=== PATIENT | female | born 1980 | race Caucasian/White ===

== ENCOUNTER 2017-05-11 12:21 | Emergency (ER) | payer MEDICAID ==
[~2017-05-11] VITALS: Ht 162.6 cm; Wt 140.0 kg
[2017-05-11 12:59] VITALS: BP 114/85
== END 2017-05-11 13:01 ==
LOC: ER 12:22
DX: S60.812A Abrasion of left wrist, initial encounter (principal); S60.811A Abrasion of right wrist, initial encounter; R46.89 Other symptoms and signs involving appearance and behavior; Y04.8XXA Assault by other bodily force, initial encounter; Y93.89 Activity, other specified; Y92.89 Other specified places as the place of occurrence of the external cause; Y99.8 Other external cause status
CPT/HCPCS: 99283

== ENCOUNTER 2017-10-10 22:05 | Emergency (ER) | payer MEDICAID ==
[~2017-10-10] VITALS: Ht 160 cm; Wt 60.0 kg
[2017-10-10 22:32] LABS: BASOPHILS # (AUTO) 0.1 X10'3 (0-0.2); BASOPHILS % (AUTO) 0.8 % (0-1); EOSINOPHILS # (AUTO) 0.3 X10'3 (0-0.9); EOSINOPHILS % (AUTO) 3.5 % (0-6); HEMATOCRIT 32.4 % (35.0-45.0); LYMPHOCYTES # (AUTO) 3.6 X10'3 (1.1-4.8); MEAN CORPUSCULAR HGB CONC 33.9 % (33.0-36.5); MEAN CORPUSCULAR VOLUME 88.4 FL (78-98); MONOCYTES # (AUTO) 0.7 X10'3 (0-0.9); MONOCYTES % (AUTO) 8.5 % (2-12); NEUTROPHILS # (AUTO) 3.4 X10'3 (1.8-7.7); NEUTROPHILS % (AUTO) 42.2 % (42-75); PLATELET COUNT 240 X10'3 (140-440); RED BLOOD COUNT 3.67 X10'6 (4.20-5.60); RED CELL DISTRIBUTION WIDTH 14.1 % (11.5-14.5)
[2017-10-10] MEDS ORDERED: TETanus/Pertussis (Acell)/Diphther VAC/PF (Tdap-Adult) 0.5ml syringe IMVAC ONE (22:40)
[2017-10-10] MEDS ORDERED: LIDOcaine 1% 30ml preserv. free vial IJ ONE (22:40)
[2017-10-10] MEDS ORDERED: bacitracin 15gm ointment TP ONE (22:40)
[2017-10-10 22:45] LABS: ALANINE AMINOTRANSFERASE 127 U/L (12-78); ALBUMIN 3.5 G/DL (3.4-5.0); ALBUMIN/GLOBULIN RATIO 0.9 (1.1-1.5); ALKALINE PHOSPHATASE 84 IU/L (46-116); ANION GAP 8 (8-16); ASPARTATE AMINO TRANSFERASE 50 U/L (10-37); BILIRUBIN,TOTAL 0.5 MG/DL (0.1-1.0); BLOOD UREA NITROGEN 21 MG/DL (7-18); BUN/CREATININE RATIO 17.8 (6.6-38.0); CALCIUM 8.7 MG/DL (8.5-10.1); CHLORIDE 108 MMOL/L (99-107); CREATININE 1.18 MG/DL (0.40-0.90); GLUCOSE 107 MG/DL (70-104); POTASSIUM 3.7 MMOL/L (3.5-5.1); SODIUM 141 MMOL/L (135-145); TOTAL CARBON DIOXIDE 25.3 MMOL/L (24-32); TOTAL PROTEIN 7.2 G/DL (6.4-8.2); eGFR 52 ML/MIN
[2017-10-10 22:54] LABS: ETHANOL < 0.010 GM/DL (0.0-0.010)
[2017-10-10 23:10] LABS: ACETAMINOPHEN < 2.0 UG/ML (10-30)
[2017-10-11] MEDS ORDERED: normal saline 1000ml 1,000 ML IV ONE ×2 (00:30)
[2017-10-11 00:51] LABS: CREATINE KINASE 224 U/L (26-192)
[2017-10-11 02:13] LABS: URINE HCG NEGATIVE (NEG)
[2017-10-11 02:18] LABS: URINE AMPHETAMINE SCREEN POSITIVE (Neg); URINE BARBITUATE SCREEN NEGATIVE (Neg); URINE BENZODIAZEPINES SCREEN NEGATIVE (Neg); URINE CANNABINOID SCREEN POSITIVE (Neg); URINE COCAINE SCREEN NEGATIVE (Neg); URINE METHADONE SCREEN NEGATIVE (Neg); URINE OPIATE SCREEN NEGATIVE (Neg); URINE PHENCYCLIDINE SCREEN NEGATIVE (Neg)
[2017-10-11] MEDS ORDERED: LIDOcaine 1% 30ml preserv. free vial IJ ONE (02:20)
[2017-10-11 03:04] VITALS: BP 123/78
== END 2017-10-11 03:00 ==
LOC: ER 22:05
DX: S01.01XA Laceration without foreign body of scalp, initial encounter (principal); S81.812A Laceration without foreign body, left lower leg, initial encounter; N28.9 Disorder of kidney and ureter, unspecified; F15.10 Other stimulant abuse, uncomplicated; F12.10 Cannabis abuse, uncomplicated; F11.90 Opioid use, unspecified, uncomplicated; W26.8XXA Contact with other sharp object(s), not elsewhere classified, initial encounter; Y93.89 Activity, other specified; Y92.89 Other specified places as the place of occurrence of the external cause; Y99.8 Other external cause status
CPT/HCPCS: 12004; 36415; 70450; 80053; 80305; 80320; 80329; 81025; 82550; 84443; 85025; 90471; 90715; 99285; A6449; J3490; J7030; 99284

== ENCOUNTER 2024-08-08 10:41 | Emergency (ER) | payer MEDICAID ==
[~2024-08-08] VITALS: Ht 160 cm; Wt 67.9 kg
--- NOTE | 2024-08-08 11:57 | Physician Documentation ---
History of Present Illness ~ Chief Complaint: Bite-animal Stated Complaint: DOG BITE Time Seen by MD: 10:58 OK to notify your PCP?: Yes Primary Medical Doctor: [facility] Source: patient Mode of Arrival: POV Exam Limitations: no limitations HPI 43-year-old female who is here due to a scratch to her left thumb that occurred when she was trying to break up a dog fight. She states she does not know if the dogs are vaccinated but she does know the dog's. She denies any abnormal behaviors with the dogs and states that they are not stray dogs. Patient states her last tetanus was over 10 years ago. Pre arrival treatment consisted of her irrigating the scratch and cleaning it with rubbing alcohol as well as putting a Band-Aid on it. States she has full active range motion of her thumb. No other concerns or complaints. Tetanus within 5 years?: No Medication Reconciliation Allergies: Coded Allergies: No Known Allergies (Unverified , 10/10/17) Past Medical History Past Medical History: No Pertinent History Past Surgical History: noncontributory Smoking Status: Current every day smoker Alcohol Use: Occasionally Drug Use: methamphetamine, heroin Occupation: employed Review of Systems All Other Systems at this time: Reviewed and Negative Physical Exam Vital Signs: Temperature: 98.6, Source: Temporal, Heart Rate: 71, Respiratory Rate: 15, BP: 105/55, Pulse Oximetry: 97, Weight: 67.900 Physical Exam General Appearance: Alert, WD/WN. NAD. HEENT: NCAT, PERRL, EOMI. Neck: Supple, trachea midline. Cardiovascular: RRR. No m/r/g. Lungs: CTAB. Breathing unlabored Extremities: Superficial abrasion to left thumb, active range motion of the thumb is full, no erythema, edema, cap refill <2seconds at thumb tip. Skin: Warm/dry, normal color Neurological: Alert and oriented x4, normal gait. Psychiatric: Affect congruent with mood. Progress Results/Orders Results/Orders Completed Orders - OLEGARIO GARCIA Tetanus/Pertuss/Diph Acell/Pf (Boostrix (08/08/24 11:50) Vital Signs 08/08/24 10:44 Temp 98.6 Pulse 71 Resp 15 B/P (MAP) 105/55 Pulse Ox 97 Medical Decision Making Differential Dx:Considerations: Include: Abrasion, Allergic reaction, Anaphylaxis, Cellulitis, Contusion, Fracture, Hematoma, Insect envenomation, Laceration, Neurovascular injury, Punture wound, Retained foreign body, Urticaria Departure Time of Disposition: 11:54 Disposition: 01 HOME / SELF CARE / HOMELESS Impression: Primary Impression: Dog scratch Additional Impression: Immunization due Condition: Stable Discharge Instructions: Animal Bite, Adult Additional Instructions: KEEP CLEAN IF S/SX OF INFECTION RETURN TO ER UPDATED TETANUS SINCE DOGS ARE NOT STRAY DOGS AND NO ABNORMAL BEHAVIOR, RABIES PREVENTION NOT INDICATED, YOU CAN HAVE DOGS TESTED FOR RABIES OR JUST MONITOR THEM/QUARANTINE FOR 10DAYS. Referrals: NO PRIMARY CARE PROVIDER (PCP) Education Educated: Patient Educated regarding: diagnosis, treatment, need for follow up Signature Scribe Signature: X Attestation: OLEGARIO GARY August 08, 2024 11:57
[2024-08-08] MEDS: TETanus/Pertussis (Acell)/Diphther VAC/PF (Tdap-Adult) 0.5ml syringe IMVAC ONE (12:25)
[2024-08-08 12:28] VITALS: BP 110/73; PULSE 70; RESP 16; TEMP 98.6; O2SAT 98
== END 2024-08-08 12:34 | disposition home or self-care (01) ==
LOC: ER 10:42
DX: S60.312A Abrasion of left thumb, initial encounter (principal); F17.200 Nicotine dependence, unspecified, uncomplicated; F15.90 Other stimulant use, unspecified, uncomplicated; F11.90 Opioid use, unspecified, uncomplicated; Z72.89 Other problems related to lifestyle; W54.0XXA Bitten by dog, initial encounter; Y93.89 Activity, other specified; Y92.89 Other specified places as the place of occurrence of the external cause; Y99.8 Other external cause status
CPT/HCPCS: 90471; 90715; 99283; J7040